=== PATIENT | male | born 1995 | race Two or more races ===

== ENCOUNTER 2021-07-03 09:30 | Emergency (ER) | payer SELFPAY | END 2021-07-03 12:00 | disposition left against medical advice (07) | LOC: ER 09:30 | DX: K08.89 Other specified disorders of teeth and supporting structures (principal); Z53.21 Procedure and treatment not carried out due to patient leaving prior to being seen by health care provider ==

== ENCOUNTER 2021-07-03 20:08 | Emergency (ER) | payer SELFPAY | END 2021-07-04 01:01 | disposition left against medical advice (07) | LOC: ER 20:08 | DX: K08.89 Other specified disorders of teeth and supporting structures (principal); Z53.21 Procedure and treatment not carried out due to patient leaving prior to being seen by health care provider ==